=== PATIENT | female | born 1940 | race Caucasian/White ===

== ENCOUNTER → 2017-10-11 | Outpatient (CLI) | payer MEDICARE ==
--- NOTE | 2017-10-11 17:13 | RADIOLOGY REPORT (SQ) ---
EXAM DESCRIPTION: CT LUMBAR SPINE WITHOUT COMPLETED DATE/TIME: 10/11/2017 4:38 pm REASON FOR STUDY: OTHER INTERVERTEBRAL DISC DEGENERATION, LUMBAR REGION M51.36 OTHER INTERVERTEBRAL DISC DEGENERATION, LUMBAR REGION COMPARISON: None. TECHNIQUE: Axial images acquired through the lumbar spine without intravenous contrast. Images revi ewed with lung, soft tissue and bone windows. Reconstructed coronal and sagittal MPR images reviewed . All images stored on PACS. All CT scanners at this facility use dose modulation, iterative reconstruction, and/or weight based d osing when appropriate to reduce radiation dose to as low as reasonably achievable (ALARA). [facility]: Dose Right [facility]: CareDose [facility]: Dose Right [facility]: Teradose 4D [facility]: [employer] RADIATION DOSE: 39 mGy. LIMITATIONS: None. FINDINGS: SEGMENTATION: Normal. No transitional anatomy. ALIGNMENT: Degenerative convex leftward lumbar curvature. VERTEBRAL BODIES: Subacute upper endplate compression deformity at L1 with persistent upper endplate fracture line surrounded by sclerosis, best shown on sagittal reconstruction images 26-30. Minimal L 1 vertebral body anterior loss of height. DISCS: T11-12 is unremarkable. At T12-L1, a chronic calcified small left paracentral disc herniation is present without significant central or foraminal stenosis. At L1-2, broad diffuse posterior disc bulge and bony spurring is present with mild facet and ligament hypertrophy. Borderline central canal narrowing. No significant foraminal stenosis. At L2-3, mild central canal stenosis results from broad diffuse posterior disc bulging and moderate b ilateral facet and ligament hypertrophy best shown on axial image number 37. There is moderate right and mild left foraminal narrowing without definite exiting nerve root impingement. At L3-4, broad diffuse disc bulge right greater than left and bilateral facet and ligament hypertroph y causes borderline central canal narrowing best shown on axial image 48. There is mild bilateral fo raminal narrowing without definite exiting L3 nerve root impingement. At L4-5, moderate central canal stenosis results from broad diffuse posterior disc bulge and bulky bi lateral facet and ligament hypertrophy, best shown on axial image 57. There is moderate right and le ft foraminal narrowing without definite exiting L4 nerve root impingement. At L5-S1, broad diffuse posterior disc bulge and bilateral facet and ligament hypertrophy are present without central canal narrowing. No right foraminal stenosis. Moderate left foraminal narrowing wi thout definite exiting L5 nerve root impingement. PEDICLES, TRANSVERSE PROCESSES: No fractures. No dislocation. No acute findings. FACETS, POSTERIOR ELEMENTS: No fractures. No dislocation. HARDWARE: None in the spine. VISUALIZED RIBS: No fractures. SOFT TISSUES: No significant or acute finding in adjacent soft tissues. OTHER: No other significant finding. IMPRESSION: Diffuse degenerative changes as above TECHNICAL DOCUMENTATION: JOB ID: [id number] Quality ID # [id number]: Final reports with documentation of one or more dose reduction techniques (e.g., Au tomated exposure control, adjustment of the mA and/or kV according to patient size, use of iterative reconstruction technique) 2010 [employer]- All Rights Reserved Reading location - IP/workstation name: [id number]
== END ==
LOC: RAD 16:24
PROVIDERS: ATTEND Physician Assistant
DX: M51.36 Other intervertebral disc degeneration, lumbar region (principal)
CPT/HCPCS: 72131